=== PATIENT | female | born 1975 | race American Indian/Alaskan Native ===

== ENCOUNTER 2018-09-27 10:08 | Outpatient (CLI) | payer OTHER ==
--- NOTE | 2018-09-27 14:18 | Mammography Report ---
BILATERAL DIGITAL SCREENING MAMMOGRAM WITH CAD:09/27/18 10:00:00 CLINICAL: Baseline screening. FINDINGS: The breasts are heterogeneously dense, which may obscure small masses.No mass, architectural distortion or suspicious calcifications. IMPRESSION: No mammographic evidence of malignancy. BI-RADS CATEGORY: 1 -- Negative RECOMMENDATION: Routine mammographic screening in one year. ACR BI-RADS MAMMOGRAPHIC CODES: 0 = Needs additional imaging evaluation; 1 = Negative; 2 = Benign; 3 = Probably benign; 4 = Suspicious; 5 = Malignant; 6 = Known biopsy-proven malignancy COMMENT: 1. Dense breast tissue, i.e., adenosis, fibrocystic changes, etc., may obscure an underlying neoplasm. 2. Approximately 10% of cancers are not detected with mammography. 3. A negative mammography report should not delay biopsy if a clinically suspicious mass is present.
== END 2018-09-27 10:09 | disposition home or self-care (01) ==
LOC: SPVWC 10:08
PROVIDERS: ATTEND Family Medicine
DX: Z12.31 Encounter for screening mammogram for malignant neoplasm of breast (principal)
CPT/HCPCS: 77067

== ENCOUNTER 2020-08-20 08:36 | Day surgery (SDC) | payer OTHER ==
[~2020-08-20 08:36] MED LIST: SODIUM CHLORIDE 0.9% 1000 ML 1,000 ML IV SCH
--- NOTE | 2020-08-20 09:26 | Anesthesia Consultation ---
Anesthesia Consult and Med Hx Date of service: 08/20/20 - Airway Anesthetic Teeth Evaluation: Good ROM Head & Neck: Adequate Mental/Hyoid Distance: Adequate Mallampati Class: Class I Intubation Access Assessment: Good - Pre-Operative Health Status ASA Pre-Surgery Classification: ASA1 Proposed Anesthetic Plan: MAC - Pulmonary Hx Smoking: No - Gastrointestinal Hx Ulcer: Yes - Endocrine Hx Non-Insulin Dependent Diabetes: No Hx Thyroid Disease: No - Hematic Hx Sickle Cell Disease: No
--- NOTE | 2020-08-20 09:26 | Anesthesia Day of Surgery ---
Anesthesia Day of Surgery - Day of Surgery Patient Examined: Yes Patient H&P Reviewed: Yes Patient is NPO: Yes
[2020-08-20] MEDS ORDERED: LIDOCAINE MPF (2%) 20 MG/1 ML VIAL 5 ML ONE (10:15)
[2020-08-20] MEDS ORDERED: ONDANSETRON 4 MG/2 ML INJ ONE (10:16)
[2020-08-20] MEDS ORDERED: propofoL 200 MG/20 ML VIAL IV ONE ×3 (10:16→10:46)
[2020-08-20] MEDS ORDERED: fentaNYL 100 MCG/2 ML INJ ONE (10:16)
--- NOTE | 2020-08-20 11:08 | Procedure Note ---
Date of procedure: 08/20/20 Pre-op diagnosis: Abdominal Pain/ GERD/ Diarrhea Post-op diagnosis: other (R/O Microscopic Colitis/ Minor,Internal Hemorrhoid/ No Colon Polyp or Diverticuli noted/ Small,Gastric Ulcer/Gastritis/Gastritis/ Mild to Moderate Erosive Esophagitis/ R/O Celiac Disease) Procedure: EGD with Biopsy and Colonoscopy with Biopsy Anesthesia: [facility] [place] Surgeon: SHANICE DE LEON Estimated blood loss: minimal Pathology: list Specimen disposition: to lab Condition: stable Disposition: same day (Treat with PPI and OTC antidiarrhea medication and OTC Probiotic of choice as directed. Avoid aspirin ad mnSAID for 4days; otherwise resume home medication and follow up in 1 to 2 weeks ([phone]).)
--- NOTE | 2020-08-20 11:27 | Operative Report ---
DATE OF SURGERY: 08/20/2020 ESOPHAGOGASTRODUODENOSCOPY WITH BIOPSY INDICATIONS: This is a 45-year-old -[place] female, who has a history of migraine and a history of taking NSAIDs on a regular basis. Also, has a prior history of H. pylori gastritis, for which she has been treated. Lately, she has been having abdominal pain. EGD was done to make sure there was not any recurrence of any peptic ulcer disease or recurrence of her H. pylori gastritis infection. DESCRIPTION OF PROCEDURE: After getting informed consent with MAC anesthesia. Instrument was passed through the hypopharynx into the esophagus, which showed mild to moderate distal erosive esophagitis. Biopsy was done from the distal esophagus to assess for the severity of the erosive esophagitis. The stomach showed gastric erosion, gastritis and small gastric ulcer in the antrum. Pylorus is patent. Duodenum in the first and second portion appeared normal. Biopsy was done from the second part of the duodenum to rule out for celiac disease. Additional biopsy was done from the gastric antrum, gastric body, and angularis incisura to rule out for H. pylori and atrophic gastritis with minimal bleeding associated with the biopsies. ASSESSMENT: Abdominal pain, mild to moderate erosive esophagitis, gastric erosion, gastritis, small gastric ulcer, and rule out celiac disease. PLAN: To treat the patient with proton pump inhibitor as well as probiotics, have the patient avoid aspirin and aspirin-related products. Colonoscopy will be done because of the patient's symptoms of abdominal pain and associated diarrhea. The patient will be asked to follow up in the office in 1-2 weeks' time. Procedure was done in the GI lab with assistance of the GI lab team, which included Giselle and sonido Gusman and also with assistance of anesthesia. TID: [id number] RECEIPT: [id number] DAPHNE/ANTHONY
--- NOTE | 2020-08-20 11:31 | Operative Report ---
DATE OF SURGERY: 08/20/2020 COLONOSCOPY INDICATIONS: This is a 45-year-old -[place] female, who had an EGD done prior to the colonoscopy. EGD showed presence of small gastric ulcer with gastric erosion, gastritis as well as erosive esophagitis. Colonoscopy was done to make sure there was not any significant pathology in the colon that would account for the patient's diarrhea. DESCRIPTION OF PROCEDURE: Procedure was done after getting informed consent with MAC anesthesia. Initial rectal examination is unremarkable. The instrument was passed through the rectum onto the cecum, which was identified with ileocecal valve and appendiceal orifice. Visualization was fair to good. Terminal ileum was briefly intubated, but biopsy could not be done and showed normal mucosa. Cecum, ascending colon, transverse colon, descending colon and sigmoid likewise showed normal mucosa. Random biopsies were done to rule out for possible microscopic colitis. In the rectum showed some minor internal hemorrhoids on the retroverted view. No colon polyps or diverticular disease was noted. There was minimal bleeding associated with the procedure. No complications associated with the procedure. ASSESSMENT: Abdominal pain, diarrhea, rule out microscopic colitis. No colon polyps, or diverticula noted. Minor internal hemorrhoid. Plan is to have the patient take [id number] antidiarrheal medications as needed. Encourage the patient to take probiotics. The patient will be treated with PPI because of the EGD findings of small gastric ulcer, gastric erosion, gastritis as well as erosive esophagitis. The patient will be asked to avoid aspirin and aspirin-related products for the next few days and follow up in the office in 1-2 weeks' time. Procedure was done in the GI lab with assistance of the GI lab team, which included sonido Gusman and GI nurse Giselle and with the assistance of Anesthesia. TID: [id number] RECEIPT: [id number] DAPHNE/ANTHONY
[2020-08-20 12:51] VITALS: BP 120/79
--- NOTE | 2020-08-20 14:56 | Post Anesthesia Evaluation ---
- Post Anesthesia Evaluation Patient Participated: Yes Airway Patent: Yes Stable Respiratory Function: Yes Nausea/Vomiting: No Temp > 96.8F: Yes Pain Manageable: Yes Adequeate Hydration: Yes Anesthesia Complications: No Block Receding Appropriately: Not Applicable Patient on Ventilator: No
== END 2020-08-20 11:40 | disposition home or self-care (01) ==
LOC: GIO 08:36
DX: R19.7 Diarrhea, unspecified (principal); R10.9 Unspecified abdominal pain; K64.8 Other hemorrhoids; K29.70 Gastritis, unspecified, without bleeding; K25.9 Gastric ulcer, unspecified as acute or chronic, without hemorrhage or perforation; K20.90 Esophagitis, unspecified without bleeding; K31.89 Other diseases of stomach and duodenum; K92.1 Melena; G43.909 Migraine, unspecified, not intractable, without status migrainosus; Z79.899 Other long term (current) drug therapy; Z90.49 Acquired absence of other specified parts of digestive tract
CPT/HCPCS: 43239; 45380; 81025; 88305; 88342; J2405; J2704; J3010; J7030